=== PATIENT | male | born 1990 | race Two or more races ===

== ENCOUNTER 2016-05-11 09:39 | Emergency (ER) | payer OTHER ==
[2016-05-11 09:45] VITALS: TEMP 98.6; BMI 26.6
[2016-05-11] MEDS ORDERED: SODIUM CHLORIDE 1,000 ML IV ONE (09:56)
[2016-05-11] MEDS ORDERED: HYDROmorphone HCL CARPU-JECT 2 MG/1 ML DISP.SYRIN IVPUSH ONE ×2 (10:06→13:07)
--- NOTE | 2016-05-11 10:16 | PDOC ---
History of Present Illness - General History Source: Patient Exam Limitations: No Limitations - History of Present Illness Initial Comments: 05/11/16 10:36 The patient is a 26-year-old man with a significant past medical history of sickle cell anemia(on hydroxyurea, folic acid, s/p splenectomy); gets transfused when HGB is under 6, last transfusion was in 02/2016 at [facility]) and migraine headaches and asthma (Albuterol) who presents to the emergency department via walk-in in sickle cell crisis since yesterday. He states that he typically gets a sickle cell crisis approximately 3-4x/year, which consists of bilateral arm and knee pain, lower back pain, headaches, nausea and vomiting. He states that yesterday afternoon, he started to experience his typical sickle cell symptoms. He reports his symptoms started with bilateral arm, knee pain followed by headaches, nausea and one episode of vomiting. No fall, trauma, strenous activity. No visual changes. No chest pain, lightheadedness, dizziness,palpitations, shortness of breath, numbness/tingling/ weakness. Patient does endorse a mild intermittent nonproductive cough. No urinary symptoms. No history of acute chest/cva. No numbness, tinlging, weakness sensations throughout his body. Allergies: No Known Drug Allergies Past Surgical History: Spleenectomy. Cholecystectomy. Social History: No tobacco, ETOH and recreational drug use. Primary Care Physician: Follows up at [facility] Family Past Medical History: Both parents have sickle cell trait. <Ines Patel - Last Filed: 05/11/16 14:06> <Sage Aguilera - Last Filed: 05/11/16 15:34> - General Chief Complaint: Pain Stated Complaint: SICKLE CELL CRISIS Time Seen by Provider: 05/11/16 09:54 Past History <Ines Patel - Last Filed: 05/11/16 14:06> - Past Medical History Anemia: Yes (sickle cell, usual HGB 7.0) Asthma: Yes Other medical history: migraines - Surgical History Abdominal Surgery: Yes (Spleenectomy) Cholecystectomy: Yes - Psycho/Social/Smoking Cessation Hx Anxiety: No Suicidal Ideation: No Smoking History: Never smoked Have you smoked in the past 12 months: No Information on smoking cessation initiated: No Hx Alcohol Use: No Drug/Substance Use Hx: No Substance Use Type: None <Sage Aguilera - Last Filed: 05/11/16 15:34> - Past Medical History Allergies/Adverse Reactions: Allergies Allergy/AdvReac Type Severity Reaction Status Date / Time No Known Allergies Allergy Verified 05/11/16 09:41 Home Medications: Ambulatory Orders Oxycodone HCl/Acetaminophen [Percocet 5-325 mg Tablet -] 1 combo PO Q6H PRN #21 tablet MDD 8 11/18/15 Divalproex [Depakote -] 500 mg PO DAILY 11/20/15 Folic Acid - 1 mg PO DAILY 11/20/15 Hydroxyurea [Hydrea -] 500 mg PO DAILY 11/20/15 Oxycodone HCl/Acetaminophen [Percocet 5-325 mg Tablet -] 1 combo PO Q6H PRN #14 tablet MDD 4 05/11/16 Review of Systems - Review of Systems Able to Perform ROS?: Yes Comments:: 05/11/16 10:36 CONSTITUTIONAL: No reported: Fever, Chills, Diaphoresis, Generalized Weakness, Malaise, Loss of Appetite HEENT: No reported: Rhinorrhea, Nasal Congestion, Throat Pain, Throat Swelling, Difficulty Swallowing, Mouth Swelling, Ear Pain, Eye Pain, Visual Changes CARDIOVASCULAR: No reported: Chest Pain, Syncope, Palpitations, Irregular Heart Rate, Lightheadedness, Peripheral Edema RESPIRATORY: reported: intermittent cough No reported: Shortness of Breath, SOB with Exertion, Orthopnea, Wheezing, Stridor, Hemoptysis GASTROINTESTINAL: Reported: Nausea. Vomiting. No reported: Abdominal pain, Abdominal Distension, Diarrhea, Constipation, Melena, Hematochezia GENITOURINARY: No reported: Dysuria, Frequency, Urgency, Hesitancy, Flank Pain, Genital Pain MUSCULOSKELETAL: Reported: Arthralgia. Myalgia. Back Pain. No reported: Joint Swelling, Neck Pain SKIN: No reported: Rash, Itching, Pallor HEMEATOLOGIC/IMMUNOLOGIC: No reported: Easy Bleeding, Easy Bruising, Lymphadenopathy, Frequent infections ENDOCRINE: No reported: Unexplained Weight Gain, Unexplained Weight Loss, Heat Intolerance , Cold Intolerance NEUROLOGIC: Reported: Headache. No reported: Focal Weakness, Paresthesias, Vertigo, Lightheadedness, Unsteady Gait, Seizure, Mental Status Changes, Incontinence PSYCHIATRIC: No reported: Anxiety, Depression <Ines Patel - Last Filed: 05/11/16 14:06> *Physical Exam - Vital Signs Last Vital Signs Temp Pulse Resp BP Pulse Ox 98.6 F 86 18 151/81 100 05/11/16 09:41 05/11/16 09:41 05/11/16 09:41 05/11/16 09:41 05/11/16 09:41 - Physical Exam Comments: 05/11/16 10:36 GENERAL: The patient is awake, alert, and fully oriented, Nontoxic - in no acute distress. HEAD: Normocephalic, atraumatic. EYES: extraocular movements intact, mildy jaundiced sclera, ENT: Normal voice, Moist mucous membranes. NECK: Normal range of motion, supple LUNGS: Breath sounds equal, clear to auscultation bilaterally. No wheezes, no rhonchi, no rales. HEART: Regular rate and rhythm, without murmur, rub or gallop. ABDOMEN: Soft, nontender, normoactive bowel sounds. No guarding, no rebound.No CVA tenderness EXTREMITIES: Normal range of motion, no edema. No clubbing or cyanosis. No cords , erythema, or tenderness. NEUROLOGICAL: No facial assymetry, Normal speech, PSYCH: Normal mood, normal affect. SKIN: Warm, Dry, normal turgor. <Ines Patel - Last Filed: 05/11/16 14:06> - Vital Signs Last Vital Signs Temp Pulse Resp BP Pulse Ox 98.6 F 86 18 151/81 100 05/11/16 09:41 05/11/16 09:41 05/11/16 09:41 05/11/16 09:41 05/11/16 09:41 <Sage Aguilera - Last Filed: 05/11/16 15:34> Heart Score/ECG Review - ECG Impressions Comment:: 05/11/16 13:16 Twelve-lead EKG was performed and reviewed by me. There is normal sinus rhythm with a normal rate. ratre of 85 The axis is normal. The intervals are normal. There is normal R wave progression There are no ST or T wave abnormalities. Impression: Normal twelve-lead EKG <Sage Aguilera - Last Filed: 05/11/16 15:34> ED Treatment Course - LABORATORY CBC & Chemistry Diagram: 05/11/16 10:50 05/11/16 10:50 - RADIOLOGY Radiograph Interpretation: 05/11/16 14:06 EXAM: RAD/CHEST PA LAT IMPRESSION: Chest: Cough. Sickle cell problems 2 views of the chest have been submitted. Since the prior study of 11/18/2015, is a slightly smaller heart, normal aorta and normal taurus. The angles are sharp and the soft tissues are intact and the lungs are clear. Significant arthritic changes are not seen. <Ines Patel - Last Filed: 05/11/16 14:06> - LABORATORY CBC & Chemistry Diagram: 05/11/16 10:50 05/11/16 10:50 <Sage Aguilera - Last Filed: 05/11/16 15:34> Medical Decision Making - Medical Decision Making 05/11/16 10:09 26y M hx of sickle cell disease, asthma, presents with pain in the knees, lower back and head starting last night c/w his previous sickle cell pain crisis, no associated cp/sob, neurologic disease, although he does complain of a mild cough. likely sickle clel pain crisis no signs of stroke/acute chest will obtain labs, cxr will give pain meds, fluids will reassess A portion of this note was documented by scribe services under my direction. I have reviewed the details of the note, within reason, and agree with the documentation with the following case summary and management plan written by me 05/11/16 13:08 labs reviewed hbg significantly improved fromprevious retic count elevated lfts noted will give pt another dose of pain meds. consider admission for further management if pain not adaquately managed. 05/11/16 14:54 pt feeling improved i discussed admission with the patient, however pt requesting to leave will dc the pt to fu with his hematolist at [facility] return precautions were discussed I discussed the physical exam findings, ancillary test results and final diagnoses with the patient. I answered all of the patient's questions. The patient was satisfied with the care received and felt comfortable with the discharge plan and treatment plan. The patient will call their primary care physician within 24 hours to arrange follow-up and will return to the Emergency Department with any new, persistent or worsening symptoms. <Sage Aguilera - Last Filed: 05/11/16 15:34> *DC/Admit/Observation/Transfer - Attestations Scribe Attestion: 05/11/16 10:36 Documentation prepared by Ines Patel, acting as biomedical specialist for Sage Aguilera MD. <Ines Patel - Last Filed: 05/11/16 14:06> - Discharge Dispostion Admit: No <Sage Aguilera - Last Filed: 05/11/16 15:34> Diagnosis at time of Disposition: Sickle cell pain crisis - Discharge Dispostion Disposition: HOME Condition at time of disposition: Improved - Referrals Referrals: STAFF,NOT ON [Primary Care Provider] - - Patient Instructions Printed Discharge Instructions: DI for Sickle Cell Anemia, Pain Crisis -- Adult Additional Instructions: Return to the emergency department immediately with ANY new, persistent or worsening symptoms including any worsening pain, fevers, chills, or other concerns. Take percocet for pain. Make sure you stay well hydrated. You MUST call and follow up with your doctor tomorrow for further evaluation of your symptoms. Results were discussed with you. Please make sure your doctor reviews the results of your emergency evaluation. Print Language: YAKUT
[2016-05-11] MEDS ORDERED: HYDROmorphone HCL CARPU-JECT 1 MG/1 ML DISP.SYRIN ONE ×2 (10:18→13:42)
[2016-05-11 10:58] LABS: BASOPHIL 0.8 % (0-2.0); EOSINOPHIL 0.4 % (0-4.5); MCH 33.2 pg (25.7-33.7); MCHC 34.2 g/dl (32.0-35.9); MEAN PLT VOLUME 7.7 fl (7.5-11.1); NEUTROPHILS 68.9 % (42.8-82.8); PLATELET COUNT 522 K/MM3 (134-434); RDW 24.5 % (11.9-15.9); WHITE BLOOD COUNT 9.7 K/mm3 (4.0-10.0)
[2016-05-11 11:26] LABS: ALBUMIN 4.6 g/dl (3.4-5.0); ALK PHOS 88 U/L (45-117); ANION GAP 7 (8-16); BILIRUBIN,TOTAL 1.6 mg/dL (0.2-1.0); CALCIUM 9.2 mg/dL (8.5-10.1); CO2 24 mmol/L (21-32); CREATININE 1.3 mg/dL (0.7-1.3); GLUCOSE,RANDOM 106 mg/dL (74-106); SGPT/ALT 46 U/L (12-78); TOT PROT 9.1 g/dl (6.4-8.2)
[2016-05-11 11:38] LABS: SGOT/AST 63 U/L (15-37)
[2016-05-11 13:21] LABS: ANISOCYTOSIS 2+; HYPOCHROMIA 2+; POLYCHROMASIA 2+; TARGET CELLS 3+; TEAR DROP CELLS FEW
[2016-05-11 13:22] LABS: POIKILOCYTOSIS 2+
[2016-05-11] MEDS ORDERED: diphenhydrAMINE HCL 25 MG CAPSULE (FP) PO ONE ×2 (14:16→14:27)
[2016-05-11] MEDS ORDERED: OXYCODONE/APAP 5/325MG COMBO TABLET PO ONE (15:34)
[2016-05-11 15:45] VITALS: BP 136/60; PULSE 78
--- NOTE | 2016-05-12 11:02 | EKG ---
Test Reason : Blood Pressure : / mmHG Vent. Rate : 085 BPM Atrial Rate : 085 BPM P-R Int : 146 ms QRS Dur : 078 ms QT Int : 374 ms P-R-T Axes : 049 048 042 degrees QTc Int : 445 ms NORMAL SINUS RHYTHM NONSPECIFIC T WAVE ABNORMALITY ABNORMAL ECG WHEN COMPARED WITH ECG OF 02-DEC-2015 08:48, T WAVE VARIATION Confirmed by PRATIK BEARDEN MD ([id number]) on 05/12/2016 11:01:56 AM Referred By: Confirmed By:PRATIK BEARDEN MD
== END 2016-05-11 15:45 | disposition home or self-care (01) ==
LOC: JER 09:39
PROC: 3E0337Z Introduction of Electrolytic and Water Balance Substance into Peripheral Vein, Percutaneous Approach (ICD-10-PCS; principal; 2016-05-11)
PROC: 3E033NZ Introduction of Analgesics, Hypnotics, Sedatives into Peripheral Vein, Percutaneous Approach (ICD-10-PCS; 2016-05-11)
DX: D57.00 Hb-SS disease with crisis, unspecified (principal); G43.909 Migraine, unspecified, not intractable, without status migrainosus; J45.909 Unspecified asthma, uncomplicated
CPT/HCPCS: 36415; 71020-TC; 80053; 85025; 85044; 86850; 86900; 86901; 93005; 93010; 96361; 96374; 99283-25

== ENCOUNTER 2017-03-09 16:20 | Emergency (ER) | payer OTHER ==
[2017-03-09 16:29] VITALS: BMI 27.3
--- NOTE | 2017-03-09 16:29 | PDOC ---
Rapid Medical Evaluation Time Seen by Provider: 03/09/17 16:26 Medical Evaluation: Allergies Allergy/AdvReac Type Severity Reaction Status Date / Time No Known Allergies Allergy Verified 05/11/16 09:41 03/09/17 16:26 I have performed a brief in-person evaluation of this patient. The patient presents with a chief complaint of: Pain to lower back, knee and elbow since yesterday, similar to pain w/ sickle crises. H/o SCD on folic acid, hydroyurea, tylenol # 3 but ran out of pain meds. Pertinent physical exam findings:Stable and in NAD I have ordered the following:labs The patient will proceed to the ED for further evaluation. 03/09/17 16:29
[2017-03-09] MEDS ORDERED: KETOROLAC TROMETHAMINE 30 MG/1 ML VIAL IVPUSH ONE (17:19)
--- NOTE | 2017-03-09 17:24 | PDOC ---
History of Present Illness - General History Source: Patient Exam Limitations: No Limitations - History of Present Illness Initial Comments: 03/09/17 19:36 Patient is a 27 year old male with a significant past medical history of Sickle cell Anemia who presents to the ED to the ED with complaints of bilateral back of knee pain, bilateral elbow pain and back pain that began this morning. Patient reports waking up this morning and experiencing sudden intense joint pain that has shown no signs of relief. He reports taking his prescribed medication for the day but states they offered no relief. Patient states he experienced 3 episodes of vomiting yesterday afternoon as well as today. Denies chest pain, SOB. Denies nausea. Denies diarrhea, constipation. Denies dysuria, hematuria. Denies fevers, chills. Denies contact with sick individuals , out of state travel. Denies trauma to affected area. Allergies: None Social history: No smoking. No alcohol. No illicit drugs. Surgical history: None PMD: Not on staff <Nico Elder - Last Filed: 03/09/17 19:35> <Mell Bryan - Last Filed: 03/09/17 19:57> - General Chief Complaint: Pain Stated Complaint: SICKLE CELL CRISIS Time Seen by Provider: 03/09/17 16:26 Past History <Nico Elder - Last Filed: 03/09/17 19:35> - Past Medical History Anemia: Yes (sickle cell, usual HGB 7.0) Asthma: Yes COPD: No Other medical history: migraines - Surgical History Abdominal Surgery: Yes (Spleenectomy) Cholecystectomy: Yes - Suicide/Smoking/Psychosocial Hx Smoking History: Never smoked Have you smoked in the past 12 months: No Information on smoking cessation initiated: No Hx Alcohol Use: No Drug/Substance Use Hx: No Substance Use Type: None <Mell Bryan - Last Filed: 03/09/17 19:57> - Past Medical History Allergies/Adverse Reactions: Allergies Allergy/AdvReac Type Severity Reaction Status Date / Time No Known Allergies Allergy Verified 03/09/17 16:26 Home Medications: Ambulatory Orders Oxycodone HCl/Acetaminophen [Percocet 5-325 mg Tablet -] 1 combo PO Q6H PRN #21 tablet MDD 8 11/18/15 Divalproex [Depakote -] 500 mg PO DAILY 11/20/15 Folic Acid - 1 mg PO DAILY 11/20/15 Hydroxyurea [Hydrea -] 500 mg PO DAILY 11/20/15 Oxycodone HCl/Acetaminophen [Percocet 5-325 mg Tablet -] 1 combo PO Q6H PRN #14 tablet MDD 4 05/11/16 Review of Systems - Review of Systems Able to Perform ROS?: Yes Comments:: 03/09/17 19:36 CONSTITUTIONAL: Absent: fever, no chills, no fatigue EYES: Absent: visual changes ENT: Absent: ear pain, no sore throat CARDIOVASCULAR: Absent: chest pain, no palpitations RESPIRATORY: Absent: cough, no SOB GI: +Vomiting. Absent: abdominal pain, no nausea, no constipation, no diarrhea GENITOURINARY: Absent: dysuria, no frequency, no hematuria MUSCULOSKELETAL: +Bilateral knee pain. +Bilateral elbow pain. +Back pain. Absent: no arthralgia, no myalgia SKIN: Absent: rash NEURO: Absent: headache All Other Systems: Reviewed and Negative <Nico Elder - Last Filed: 03/09/17 19:35> *Physical Exam - Vital Signs Last Vital Signs Temp Pulse Resp BP Pulse Ox 98.0 F 95 H 18 155/90 100 03/09/17 16:03/09/17 16:03/09/17 16:03/09/17 16:03/09/17 16:26 - Physical Exam Comments: 03/09/17 19:36 GENERAL: Well-appearing, well-nourished. No apparent distress. HEENT: Normocephalic, atraumatic. PERRL, EOM intact. CARDIOVASCULAR: Normal S1, S2. Regular rate and rhythm. PULMONARY: Clear to auscultation bilaterally. ABDOMEN: Soft, non-distended, non-tender. EXTREMITIES: Normal ROM in all four extremities. No gross deformities. SKIN: Warm, dry. No rash NEUROLOGICAL: No focal neurological deficits. <Nico Elder - Last Filed: 03/09/17 19:35> - Vital Signs Last Vital Signs Temp Pulse Resp BP Pulse Ox 98.0 F 95 H 18 155/90 100 03/09/17 16:26 03/09/17 16:03/09/17 16:03/09/17 16:03/09/17 16:26 <IrvinMell Leila - Last Filed: 03/09/17 19:57> ED Treatment Course - ADDITIONAL ORDERS Additional order review: Laboratory Results 03/09/17 17:46 Urine Color Yellow Urine Appearance Clear Urine pH 5.0 Ur Specific [place] 1.012 Urine Protein 3+ H Urine Glucose (UA) Negative Urine Ketones Negative Urine Blood 2+ H Urine Nitrite Negative Urine Bilirubin Negative Urine Urobilinogen Negative Urine WBC (Auto) 1 Urine RBC (Auto) 4 Ur Epithelial Cells Rare Hyaline Casts 2 Urine Mucus Rare - Medications Given in the ED: ED Medications Discontinued Medications Generic Name Dose Route Start Last Admin Trade Name Manuelq PRN Reason Stop Dose Admin Hydromorphone HCl 2 mg 03/09/17 18:17 03/09/17 18:58 Dilaudid Injection - IM 03/09/17 18:18 2 mg ONCE STA Administration Ketorolac Tromethamine 30 mg 03/09/17 17:19 03/09/17 17:29 Toradol Injection - IVPUSH 03/09/17 17:20 Not Given ONCE ONE Ketorolac Tromethamine 60 mg 03/09/17 17:25 03/09/17 17:47 Toradol Injection - IM 03/09/17 17:26 60 mg ONCE ONE Administration Ondansetron HCl 8 mg 03/09/17 17:28 03/09/17 17:47 Zofran Odt - SL 03/09/17 17:29 8 mg ONCE ONE Administration <Nico Elder - Last Filed: 03/09/17 19:35> Medical Decision Making - Medical Decision Making 03/09/17 19:13 27-year-old male with past medical history sickle cell disease presents with exacerbation. Today at the cell phone store, but had persistent pain despite taking his regular pain medications. History of sickle cell crisis involves pain in his lower back, bilateral elbows and knees and this is where he is feeling today. He denies any fever or chills or nausea or vomiting or diarrhea, shortness of breath or chest pain. Physical exam shows that he is lungs are clear to auscultation, neck does not show any JVD or bruits, cardiac exam -[id number] with no murmurs, rubs cardiac exam , he got a soft nontender abdomen, lower extremities do not show any edema or erythema PCP he goes to the sickle cell clinic at [facility] Medications are hydroxyurea, Percocets Last time he states that he was here once last year in May. That has not time his creatinine was 1.3, creatinine is within labs were essentially unremarkable. The patient states that since Toradol shot because he was told not to take daily NSAIDs for pain because he stated his pcp told him that the usp use of nsaids would be detrimental to his kidneys. I told him I would not send him out with prescription for any nsaids. the toradol would be a one time dose 03/09/17 19:17 -todays retic count=16 03/09/17 19:51 pt feeling much better -will call father for ride home 03/09/17 19:55 <Mell Bryan - Last Filed: 03/09/17 19:57> *DC/Admit/Observation/Transfer - Attestations Scribe Attestion: 03/09/17 19:36 Documentation prepared by Nico Elder, acting as medical records secretary for Mell Bryan MD/DO. <Nico Elder - Last Filed: 03/09/17 19:35> <Mell Bryan - Last Filed: 03/09/17 19:57> Diagnosis at time of Disposition: Sickle cell pain crisis - Discharge Dispostion Disposition: HOME Condition at time of disposition: Stable - Patient Instructions Printed Discharge Instructions: DI for Sickle Cell Anemia, Pain Crisis -- Adult Additional Instructions: Keep hydrated Continue your regular medications prescribed by your doctor
[2017-03-09] MEDS ORDERED: KETOROLAC TROMETHAMINE 60 MG/2 ML VIAL IM ONE (17:25)
[2017-03-09] MEDS ORDERED: ONDANSETRON *ODT* 4 MG TABLET SL ONE (17:28)
[2017-03-09] MEDS ORDERED: ONDANSETRON *ODT* 4 MG TABLET ONE (17:30)
[2017-03-09] MEDS ORDERED: KETOROLAC TROMETHAMINE 60 MG/2 ML VIAL ONE (17:30)
[2017-03-09 18:15] LABS: URINE APPEARANCE CLEAR; URINE BILIRUBIN NEGATIVE (NEGATIVE); URINE BLOOD 2+ (NEGATIVE); URINE COLOR YELLOW; URINE GLUCOSE (UA) NEGATIVE (NEGATIVE); URINE KETONE NEGATIVE (NEGATIVE); URINE LEUK ESTERASE NEGATIVE (NEGATIVE); URINE NITRITE NEGATIVE (NEGATIVE); URINE PROTEIN 3+ (NEGATIVE); URINE UROBILINOGEN NEGATIVE mg/dL (0.2-1.0)
[2017-03-09] MEDS ORDERED: HYDROmorphone HCL CARPU-JECT 2 MG/1 ML DISP.SYRIN IM STA (18:17)
[2017-03-09 18:19] LABS: EPI CELLS RARE /HPF (FEW); URINE HYALINE CAST 2 /lpf; URINE MUCUS RARE
[2017-03-09] MEDS ORDERED: HYDROmorphone HCL CARPU-JECT 2 MG/1 ML DISP.SYRIN ONE ×2 (18:56→19:51)
[2017-03-09] MEDS ORDERED: HYDROmorphone HCL CARPU-JECT 1 MG/1 ML DISP.SYRIN IM STA (19:50)
[2017-03-09 20:09] VITALS: BP 140/81; PULSE 86; TEMP 98.2
== END 2017-03-09 20:09 | disposition home or self-care (01) ==
LOC: JER 16:20
PROC: 3E023NZ Introduction of Analgesics, Hypnotics, Sedatives into Muscle, Percutaneous Approach (ICD-10-PCS; principal; 2017-03-09)
PROC: 3E023NZ Introduction of Analgesics, Hypnotics, Sedatives into Muscle, Percutaneous Approach (ICD-10-PCS; 2017-03-09)
PROC: 3E0233Z Introduction of Anti-inflammatory into Muscle, Percutaneous Approach (ICD-10-PCS; 2017-03-09)
DX: D57.819 Other sickle-cell disorders with crisis, unspecified (principal)
CPT/HCPCS: 36415; 81003; 81015; 85044; 96372; 99282-25

== ENCOUNTER 2017-05-24 08:44 | Emergency (ER) | payer OTHER ==
[2017-05-24 08:48] VITALS: BP 148/70; PULSE 96; TEMP 98.2; BMI 28.2
--- NOTE | 2017-05-24 09:02 | PDOC ---
History of Present Illness - General Chief Complaint: Sickle Cell Crisis Stated Complaint: SICKLE CELL CRISIS Time Seen by Provider: 05/24/17 09:01 - History of Present Illness Initial Comments: 05/24/17 09:39 27 year old male with pmhx of scds, migraine and asthma who presented to the ed today due to sever scds crisis pain , the pain started around 1 am in his elbows knees and lower back and it has been worsening since the, he tries Tylenol and codeine and did not work. the pain is 9/10 local , squeezing spasming pain, he also reports nausea and vomiting 4 times today morning non bloody non bilious and headache, he denies any fever,chills , recent cold, sick contact. he denies any chest pain , palpitation , shortness of breath. denies any abdominal pain , diarrhea or constipation, denies any priapism or urinary symptoms. pt has crises every few month (5 times a year ) . his primary is at [facility]. PMH: SCDS, Asthma, Migraine PSH: cholecystectomy , splenoectomy. Allergies: NKDA Meds ; hydroxyurea 500 mg , Folic acid 1 mh po daily , Tylenol with codeine , Depakote 250 mh HS , fluvent , Albuterol FH: Sickle cell trait both parents Social:denies alcohol, drugs or smoking Physical exam: genaral: laying down in NAD Head: NC/AT ENT: EOMI, IAN, moist mucous membrane Lumgs: CTA b/l no wheezes, no crackles Heart: RRR, no MRG Abdomen: soft, ND, NT, +BS Legs: mild tenderness R/L , + DP Pulse , no edema Neuro: AAOx3 no focal deficit, CN II-XII intact Psych: appropriate mood and effect. Work up: CBC, CMP Morphine 8 mg IM for pain oral intake of fluids as pt is refusing IV line for now Benadryl 25 mg po once zofran for nausea EKG 05/24/17 09:48 05/24/17 09:52 05/24/17 10:12 05/24/17 13:11 pt received pain meds and he refused IV line. pt eloped from the hospital before finishing his treatment. Past History - Past Medical History Allergies/Adverse Reactions: Allergies Allergy/AdvReac Type Severity Reaction Status Date / Time No Known Allergies Allergy Verified 05/24/17 08:45 Home Medications: Ambulatory Orders Divalproex [Depakote -] 500 mg PO DAILY 11/20/15 Folic Acid - 1 mg PO DAILY 11/20/15 Hydroxyurea [Hydrea -] 500 mg PO DAILY 11/20/15 Anemia: Yes (sickle cell, usual HGB 7.0) Asthma: Yes COPD: No DVT: No Other medical history: migrains - Surgical History Abdominal Surgery: Yes (Spleenectomy) Cholecystectomy: Yes - Suicide/Smoking/Psychosocial Hx Smoking History: Never smoked Have you smoked in the past 12 months: No Information on smoking cessation initiated: No Hx Alcohol Use: No Drug/Substance Use Hx: No Substance Use Type: None *Physical Exam - Vital Signs Last Vital Signs Temp Pulse Resp BP Pulse Ox 98.2 F 96 H 18 148/70 100 05/24/17 08:45 05/24/17 08:45 05/24/17 08:45 05/24/17 08:45 05/24/17 08:45 ED Treatment Course - LABORATORY CBC & Chemistry Diagram: 05/24/17 09:45 05/24/17 09:45 *DC/Admit/Observation/Transfer Diagnosis at time of Disposition: Sickle cell crisis - Discharge Dispostion Disposition: ELOPED Condition at time of disposition: Stable Admit: No - Referrals - Patient Instructions - Post Discharge Activity
[2017-05-24] MEDS ORDERED: HYDROmorphone HCL CARPU-JECT 1 MG/1 ML DISP.SYRIN IM ONE (09:33)
[2017-05-24] MEDS ORDERED: diphenhydrAMINE HCL 25 MG CAPSULE (FP) PO ONE ×2 (09:33→09:48)
[2017-05-24] MEDS ORDERED: ONDANSETRON 4 MG TABLET PO ONE (09:33)
[2017-05-24] MEDS ORDERED: morphine CARPU-JECT 2 MG/1 ML DISP.SYRIN IM ONE (09:47)
[2017-05-24] MEDS ORDERED: MORPHINE SULFATE 10 MG/1 ML *VIAL ONE ×2 (09:48→11:28)
[2017-05-24] MEDS ORDERED: ONDANSETRON *ODT* 4 MG TABLET ONE (09:48)
[2017-05-24 09:53] LABS: BASO % 1.2 % (0-2.0); EOS % 0.8 % (0-4.5); HEMATOCRIT 25.8 % (35.4-49); LYMPH % 18.4 % (8-40); MCH 33.5 pg (25.7-33.7); MCHC 34.7 g/dl (32.0-35.9); MEAN CELL VOLUME 96.5 fl (80-96); MONO % 10.3 % (3.8-10.2); NEUT % 69.3 % (42.8-82.8); PLATELET COUNT 359 K/MM3 (134-434); RBC 2.68 M/mm3 (4.00-5.60); RDW 20.3 % (11.9-15.9); WHITE BLOOD COUNT 13.7 K/mm3 (4.0-10.0)
[2017-05-24 10:18] LABS: ALBUMIN 4.6 g/dl (3.4-5.0); ALK PHOS 87 U/L (45-117); ANION GAP 5 (8-16); BILIRUBIN,TOTAL 2.2 mg/dL (0.2-1.0); BLOOD UREA NITROGEN 25 mg/dL (7-18); CALCIUM 8.8 mg/dL (8.5-10.1); CHLORIDE 111 mmol/L (98-107); CO2 24 mmol/L (21-32); CREATININE 1.5 mg/dL (0.7-1.3); GLUCOSE,RANDOM 82 mg/dL (74-106); POTASSIUM 5.3 mmol/L (3.5-5.1); SGOT/AST 49 U/L (15-37); SGPT/ALT 41 U/L (12-78); SODIUM 140 mmol/L (136-145); TOT PROT 8.6 g/dl (6.4-8.2)
[2017-05-24] MEDS ORDERED: morphine CARPU-JECT 4 MG/1 ML DISP.SYRIN IM ONE (11:19)
--- NOTE | 2017-05-24 12:11 | EKG ---
Test Reason : Blood Pressure : / mmHG Vent. Rate : 066 BPM Atrial Rate : 066 BPM P-R Int : 138 ms QRS Dur : 076 ms QT Int : 384 ms P-R-T Axes : 051 052 033 degrees QTc Int : 402 ms NORMAL SINUS RHYTHM MINIMAL VOLTAGE CRITERIA FOR LVH, MAY BE NORMAL VARIANT BORDERLINE ECG WHEN COMPARED WITH ECG OF 11-MAY-2016 12:41, NO SIGNIFICANT CHANGE WAS FOUND Confirmed by PRATIK BEARDEN MD ([id number]) on 05/24/2017 12:11:33 PM Referred By: Confirmed By:PRATIK BEARDEN MD
--- NOTE | 2017-05-24 12:43 | PDOC ---
Attending Attestation - HPI HPI: 05/24/17 13:11 The patient is a 27 year old male with a significant PMH of sickle cell disease , asthma, and migraines who presents to the emergency department with lower back pain, bilateral elbow and bilateral knee pain beginning approximately 8 hours ago. The patient also notes about 4 episodes of yellow NBNB vomiting about 6 hours ago and a slight headache, which he notes usually happens when he is in crisis. He reports taking Tylenol with codeine to minimal relief. He notes this episode feels very similar to his previous sickle cell crises, which he experiences about once every 2-3 months. He denies fevers or chills. He denies chest pain or shortness of breath. He denies diarrhea, dysuria, or hematuria. Allergies: NKA - Physicial Exam PE: 05/24/17 13:11 Vitals: Triage Vital signs reviewed General Appearance: no acute distress, well nourished well developed, Cardiac: Regular rate and rhythm, no murmurs, no rubs, no gallops, Lungs: Clear to auscultation bilateral, good air movement bilaterally, Abdomen: Soft, nondistended, normal bowel sounds, nontender to palpation Extremities: Full range of motion to all extremities, no cyanosis, clubbing, or edema Skin: Warm and dry, no rashes or lesions, no petechiae Neuro: AOX3; Cranial Nerves 2-12 grossly intact, Strength intact to all extremities, Sensation intact to all extremities Psych: normal mood, normal affect <Sam Portillo - Last Filed: 05/24/17 13:11> - Resident Resident Name: Israel Carrillo - ED Attending Attestation I have performed the following: I have examined & evaluated the patient, The case was reviewed & discussed with the resident, I agree w/resident's findings & plan, Exceptions are as noted - Medical Decision Making 05/24/17 12:38 27 years old past medical history significant for sickle cell disease presents to the emergency department with his typical sickle cell crisis. No fever no chills no chest pain or shortness of breath Patient requesting IM medication given that he is difficult axis. We'll butterfly for bloods IM pain medications observe and reassess Differential diagnosis includes sickle disease sickle cell disease with crisis, GI illness given nausea vomiting Patient received 2 rounds of IM pain medication in the emergency department plan was to reevaluate patient after 2 rounds of pain meds to decided patient needed to stay as an inpatient or return home. I was informed by nurse the patient eloped prior to this reevaluation I attempted to call the patient 2 times at home but there was no answer <Benjamín Porras - Last Filed: 05/24/17 17:22> Heart Score/ECG Review - ECG Impressions Comment:: 05/24/17 17:21 EKG performed at 1109 demonstrates sinus rhythm at [address] elevations no T -wave inversions Interpreted by me <Benjamín Porras - Last Filed: 05/24/17 17:22>
== END 2017-05-24 12:20 | disposition left against medical advice (07) ==
LOC: JER 08:44
PROC: 3E023GC Introduction of Other Therapeutic Substance into Muscle, Percutaneous Approach (ICD-10-PCS; principal; 2017-05-24)
PROC: 3E023NZ Introduction of Analgesics, Hypnotics, Sedatives into Muscle, Percutaneous Approach (ICD-10-PCS; 2017-05-24)
PROC: 3E023NZ Introduction of Analgesics, Hypnotics, Sedatives into Muscle, Percutaneous Approach (ICD-10-PCS; 2017-05-24)
DX: D57.00 Hb-SS disease with crisis, unspecified (principal); M54.5 Low back pain; M25.562 Pain in left knee; M25.561 Pain in right knee; M25.522 Pain in left elbow; M25.521 Pain in right elbow
CPT/HCPCS: 36415; 80053; 85025; 85044; 93005; 93010; 99284-25